=== PATIENT | male | born 1960 | race Caucasian/White ===

== ENCOUNTER 2024-04-23 07:03 | Day surgery (SDC) | payer OTHER, MEDICARE ==
[2024-04-21 14:15] VITALS: BMI 26.6
[2024-04-23] MEDS ORDERED: PHENYLEPHRINE 2.5% OPTHALMIC DROP 2ML BOTTLE ONE (07:15)
[2024-04-23] MEDS ORDERED: CYCLOPENTOLATE 2% OPHTH SOLN 2 ML BOTTLE ONE (07:15)
[2024-04-23] MEDS ORDERED: TROPICAMIDE 1% 3 ML EYE DROPS ONE (07:15)
[2024-04-23] MEDS ORDERED: CIPROFLOXACIN 0.3% EYE DROPS 5 ML BOTTLE ONE (07:15)
[2024-04-23 07:38] VITALS: BP 118/113; PULSE 84; RESP 18; TEMP 97.3
== END 2024-04-23 08:20 | disposition home or self-care (01) ==
LOC: FASU 07:03
PROVIDERS: ATTEND Ophthalmology
PROC: 08RJ3JZ Replacement of Right Lens with Synthetic Substitute, Percutaneous Approach (ICD-10-PCS; principal; 2024-04-23)
DX: Z53.09 Procedure and treatment not carried out because of other contraindication (principal)